=== PATIENT | female | born 1980 ===

== ENCOUNTER 2023-09-02 10:09 | Outpatient (OUT) | payer MEDICARE, SELFPAY ==
--- NOTE | 2023-09-02 | XR_ITS ---
The [address] [address] Patient Name: SERGIO DEAN MRN: [id number] date: 1980 Sex: F Assigned Patient Location: Current Patient Location: Accession/Order Number: [id number] Exam Date: 09/02/2023 13:15 Report Date: 09/03/2023 07:12 At the request of: SAMY SANDY Procedure: XR foot LT min 3V PROCEDURE: XR foot LT min 3V HISTORY: LEFT FOOT PAIN COMPARISON: XR foot left 08/28/2023 FINDINGS: BONES:Mildly displaced fracture from proximal lateral base of 5th metatarsal. SOFT TISSUES:No visible soft tissue swelling. Images were obtained to cast material which slightly limits evaluation. EFFUSION:None visible. OTHER: Negative. XR/XR foot LT min 3V IMPRESSION: 1. Stable alignment of the mildly displaced base of 5th metatarsal fracture. 2. Mild bone resorption along margins compatible with changes of early bone healing. Electronically authenticated by: SHANI HIGGINS Date: 09/03/2023 07:12
== END 2023-09-02 10:10 | disposition home or self-care (01) ==
LOC: EC 10:14
PROVIDERS: Visit Provider Podiatrist Foot & Ankle Surgery
DX: M79.672 Pain in left foot (principal); S92.352D Displaced fracture of fifth metatarsal bone, left foot, subsequent encounter for fracture with routine healing
CPT/HCPCS: 73630

== ENCOUNTER 2023-09-29 14:01 | Outpatient (OUT) | payer MEDICARE, SELFPAY ==
--- NOTE | 2023-09-29 | XR_ITS ---
The [address] [address] Patient Name: SERGIO DEAN MRN: [id number] date: 1980 Sex: F Assigned Patient Location: Current Patient Location: Accession/Order Number: [id number] Exam Date: 09/29/2023 14:15 Report Date: 09/29/2023 16:20 At the request of: SAMY SANDY Procedure: XR foot LT min 3V PROCEDURE: XR foot LT min 3V COMPARISON: 09/02/2023 HISTORY: LEFT FOOT PAIN FINDINGS: BONES:Stable likely complex fracture base of the fifth metatarsal extending to the proximal articular surface. Interval increase in bone formation with incomplete bony bridging. No new fracture or dislocation. SOFT TISSUES:Negative. No visible soft tissue swelling. EFFUSION:None visible. OTHER: Negative. XR/XR foot LT min 3V IMPRESSION: Complex fracture base of fifth metatarsal with interval signs of healing Electronically authenticated by: TJ GREEN Date: 09/29/2023 16:20
== END 2023-09-29 14:02 | disposition home or self-care (01) ==
LOC: EC 14:02
PROVIDERS: Visit Provider Podiatrist Foot & Ankle Surgery
DX: M79.672 Pain in left foot (principal); S92.355D Nondisplaced fracture of fifth metatarsal bone, left foot, subsequent encounter for fracture with routine healing
CPT/HCPCS: 73630

== ENCOUNTER 2023-10-20 09:51 | Outpatient (OUT) | payer MEDICARE, SELFPAY ==
--- NOTE | 2023-10-20 | XR_ITS ---
The [address] [address] Patient Name: SERGIO DEAN MRN: [id number] date: 1980 Sex: F Assigned Patient Location: Current Patient Location: Accession/Order Number: [id number] Exam Date: 10/20/2023 09:51 Report Date: 10/20/2023 14:07 At the request of: SAMY SANDY Procedure: XR foot LT min 3V PROCEDURE: XR foot LT min 3V HISTORY: LEFT FOOT PAIN COMPARISON: XR foot left 09/29/2023 FINDINGS: BONES:Minimally displaced fracture involving lateral base of the 5th metatarsal without appreciable callus formation or increased density at fracture line. SOFT TISSUES:No visible soft tissue swelling. EFFUSION:None visible. OTHER: Negative. XR/XR foot LT min 3V IMPRESSION: 1. Stable, minimally displaced fracture involving base of 5th metatarsal. No radiographic evidence of early bone healing at this time. Electronically authenticated by: SHANI HIGGINS Date: 10/20/2023 14:07
== END 2023-10-20 09:52 | disposition home or self-care (01) ==
LOC: EC 09:51
PROVIDERS: Visit Provider Podiatrist Foot & Ankle Surgery
DX: M79.672 Pain in left foot (principal); S92.352D Displaced fracture of fifth metatarsal bone, left foot, subsequent encounter for fracture with routine healing
CPT/HCPCS: 73630

== ENCOUNTER 2023-11-18 10:19 | Outpatient (OUT) | payer MEDICARE, SELFPAY ==
--- NOTE | 2023-11-18 | XR_ITS ---
The [address] [address] Patient Name: SERGIO DEAN MRN: [id number] date: 1980 Sex: F Assigned Patient Location: Current Patient Location: Accession/Order Number: [id number] Exam Date: 11/18/2023 10:20 Report Date: 11/18/2023 13:05 At the request of: SAMY SANDY Procedure: XR foot LT min 3V PROCEDURE: XR foot LT min 3V COMPARISON: 10/20/2023 HISTORY: LEFT FOOT PAIN FINDINGS: BONES:Stable intra-articular mildly displaced fracture base of the fifth metatarsal. No significant interval bone formation is observed. No new fracture or dislocation. SOFT TISSUES:Negative. No visible soft tissue swelling. EFFUSION:None visible. OTHER: Negative. XR/XR foot LT min 3V IMPRESSION: Stable intra-articular fracture base of the fifth metatarsal Electronically authenticated by: TJ GREEN Date: 11/18/2023 13:05
== END 2023-11-18 10:20 | disposition home or self-care (01) ==
LOC: EC 10:19
PROVIDERS: Visit Provider Podiatrist Foot & Ankle Surgery
DX: M79.672 Pain in left foot (principal); S92.355D Nondisplaced fracture of fifth metatarsal bone, left foot, subsequent encounter for fracture with routine healing
CPT/HCPCS: 73630

== ENCOUNTER 2024-02-17 09:19 | Outpatient (OUT) | payer MEDICARE, SELFPAY ==
--- NOTE | 2024-02-17 | XR_ITS ---
The [address] [address] Patient Name: SERGIO DEAN MRN: [id number] date: 1980 Sex: F Assigned Patient Location: Current Patient Location: Accession/Order Number: [id number] Exam Date: 02/17/2024 09:21 Report Date: 02/18/2024 13:04 At the request of: SAMY SANDY Procedure: XR foot LT min 3V PROCEDURE: XR foot LT min 3V COMPARISON: 11/18/2023 HISTORY: LEFT FOOT PAIN FINDINGS: BONES:Stable intra-articular fracture base of fifth metatarsal with up to 3 mm of proximal displacement of the lateral fragment in relation to the metatarsal. No significant bone formation or periosteal reaction SOFT TISSUES:Negative. No visible soft tissue swelling. EFFUSION:None visible. OTHER: Negative. XR/XR foot LT min 3V IMPRESSION: Stable intra-articular fifth metatarsal fracture with no significant bone formation Electronically authenticated by: TJ GREEN Date: 02/18/2024 13:04
== END 2024-02-17 09:20 | disposition home or self-care (01) ==
LOC: EC 09:19
PROVIDERS: Visit Provider Podiatrist Foot & Ankle Surgery
DX: M79.672 Pain in left foot (principal); S92.355D Nondisplaced fracture of fifth metatarsal bone, left foot, subsequent encounter for fracture with routine healing
CPT/HCPCS: 73630